=== PATIENT | female | born 1970 | race Hispanic/Latino ===

== ENCOUNTER → 2017-04-16 | Day surgery (SDC) | payer BC, OTHER ==
[2017-04-15 16:11] LABS: BASOPHILS # (AUTO) 0.1 (0.0-0.1); BASOPHILS % 0.6 % (0.0-1.0); EOSINOPHILS # (AUTO) 0.2 (0.0-0.4); EOSINOPHILS % 2.2 % (0.0-6.0); HEMATOCRIT 42.6 % (34.2-44.1); HEMOGLOBIN 14.2 g/dL (12.0-16.0); LYMPHOCYTES # (AUTO) 3.1 (1.0-3.2); LYMPHOCYTES % 28.1 % (18.0-39.1); MEAN CORPUSCULAR HEMOGLOBIN 30.7 pg (28-32); MEAN CORPUSCULAR HGB CONC 33.3 g/dL (31-35); MEAN CORPUSCULAR VOLUME 92.2 fL (81-99); MONOCYTES # (AUTO) 0.7 (0.2-0.8); MONOCYTES % 6.3 % (4.4-11.3); NEUTROPHILS # (AUTO) 6.8 (2.1-6.9); NEUTROPHILS % 62.5 % (38.7-80.0); PLATELET COUNT 234 x10e3/uL (140-360); RED BLOOD COUNT 4.62 x10e6/uL (3.6-5.1); RED CELL DISTRIBUTION WIDTH 13.5 % (11.7-14.4)
[2017-04-15 16:14] LABS: BILIRUBIN,URINE NEGATIVE (NEGATIVE); CLARITY,URINE CLEAR (CLEAR); COLOR,URINE YELLOW (YELLOW); KETONES,URINE NEGATIVE (NEGATIVE); LEUKOCYTE ESTERASE ,URINE NEGATIVE (NEGATIVE); NITRITE,URINE NEGATIVE (NEGATIVE); PROTEIN,URINE DIPSTICK NEGATIVE (NEGATIVE); URINE UROBILINOGEN 0.2 mg/dL (0.2 - 1)
[2017-04-15 16:46] LABS: ALANINE AMINOTRANSFERASE 42 IU/L (0-55); ALBUMIN/GLOBULIN RATIO 1.1 (0.8-2.0); ALKALINE PHOSPHATASE 100 IU/L (40-150); ANION GAP 11.7 mmol/L (8-16); BLOOD UREA NITROGEN 9 mg/dL (7-26); BUN/CREATININE RATIO 12 (6-25); CALCIUM 9.4 mg/dL (8.4-10.2); CARBON DIOXIDE 26 mmol/L (22-29); CHLORIDE 104 mmol/L (98-107); CREATININE, SERUM 0.76 mg/dL (0.57-1.11); EST GLOMERULAR FILTRATION RATE > 60 ML/MIN (60-); GLUCOSE 194 mg/dL (74-118); POTASSIUM 3.7 mmol/L (3.5-5.1); SODIUM 138 mmol/L (136-145)
[~2017-04-16] MED LIST: ACETAMINOPHEN 1000 MG/100 ML IV ONE; BUPIVACAINE 0.25% 30ML SDV INJ ONE; DEXAMETHASONE SOD PHOS INJ 4 MG/ML VIAL ONE; FARXIGA PO; FENTANYL CITRATE/PF 100MCG/2 ML INJ ONE; GLIPIZIDE10 MG PO; JANUMET 50-1,01 EACH PO; LEVOFLOXACIN 500MG/D5W 100ML 100 ML IV ONE; LIDOCAINE HCL 2% LOCAL INJ 5 ML SDV VIAL INJ ONE; LISINOPRIL2.5 MG PO; METOCLOPRAMIDE HCL 10 MG/2ML VIAL ONE; MIDAZOLAM HCL 2 MG/2 ML VIAL ONE; NORETHINDRONE0.35 MG PO; ONDANSETRON HCL INJ 2 MG/ML VIAL ONE; PROPOFOL IV EMULSION 10 MG/ML 20 ML VIAL ONE; ROCURONIUM BROMIDE 10 MG/ML 5ML VIAL ONE; SEVOFLURANE INHAL SOLN 250 ML PEN BTL ONE
--- NOTE | 2017-04-16 09:53 | Operative Report ---
DATE OF PROCEDURE: April 16, 2017 PREOPERATIVE DIAGNOSES 1. Cholelithiasis. 2. Biliary colic. POSTOPERATIVE DIAGNOSES 1. Cholelithiasis. 2. Biliary colic. 3. Chronic cholecystitis. PROCEDURE PERFORMED: Laparoscopic cholecystectomy. ANESTHESIA: General endotracheal. ESTIMATED BLOOD LOSS: Minimal. DRAINS: None. COMPLICATIONS: None. INDICATIONS AND FINDINGS: This patient is a 46-year-old female admitted for laparoscopic cholecystectomy. She has complained of right upper quadrant pain, nausea and vomiting for several weeks. The pain was aggravated by fatty food. Patient had gallstones by ultrasound and normal ductal system. INTRAOPERATIVE FINDINGS: Cholelithiasis. Adhesions of the stomach and omentum to the gallbladder consistent with chronic cholecystitis. No evidence of ductal dilatation. DESCRIPTION OF PROCEDURE: With the patient lying on the operating table in the supine position and after administration of general anesthesia, she was prepped and draped for laparoscopic cholecystectomy. The procedure was begun by establishing a pneumoperitoneum in the right upper quadrant midclavicular line. Pneumoperitoneum was insufflated to 15 mm of pressure. Then the 5-mm trocar was placed, and under direct vision with a camera, a 10 mm umbilical port was placed. There were no umbilical adhesions. The patient had previous . We placed a 10/11 trocar in the umbilical site and rotated the patient to the left up, and placed a 10-mm subxiphoid port. Then finally a right anterior axillary line trocar. The adhesions to the gallbladder was then retracted cephalad. Adhesions of the gallbladder to the omentum were lysed, as well as the stomach exposing the neck of the gallbladder. The cystic duct was identified anteriorly, and the cystic artery posteriorly clearly going into the gallbladder fossa. The cystic duct junction was identified and preserved. The cystic duct and common bile duct junction was identified and carefully preserved. Then the cystic duct was clipped distally 3 times, once proximal and transected as was the cystic artery. At this point, we retracted the gallbladder from the liver bed. At this point, we removed the gallbladder from the liver bed using electrocautery dissection. After we did that, we then went ahead and removed the gallbladder through the umbilical port. We then inspected the operative field. There was no bile leak. No bleeding. No apparent bowel injury. At that point, we released the pneumoperitoneum. Closed the wounds using 0 Vicryl for the umbilical fascia, 3-0 Vicryl for the subcutaneous tissue in that location, as well as the subxiphoid port, and the skin of all the ports with yue. Then 0.25% Marcaine with epinephrine was given as a local block at the end of the case. The patient tolerated the procedure well, and taken to the recovery room stable condition. Job#: [id number] RI
== END | disposition home or self-care (01) ==
LOC: OR 08:34
PROVIDERS: ATTEND Surgery
DX: K80.10 Calculus of gallbladder with chronic cholecystitis without obstruction (principal); K82.8 Other specified diseases of gallbladder; E11.9 Type 2 diabetes mellitus without complications; K21.9 Gastro-esophageal reflux disease without esophagitis; I10 Essential (primary) hypertension; F41.9 Anxiety disorder, unspecified; F17.210 Nicotine dependence, cigarettes, uncomplicated; Z01.810 Encounter for preprocedural cardiovascular examination; Z01.812 Encounter for preprocedural laboratory examination
CPT/HCPCS: 36415; 47562; 80053; 81003; 81025; 85025; 88304; 93005; C1766; J1100; J1956; J2001; J2250; J2405; J2765

== ENCOUNTER → 2018-06-10 | Day surgery (SDC) | payer BC ==
[~2018-06-10] MED LIST changes: -ACETAMINOPHEN 1000 MG/100 ML IV ONE; -BUPIVACAINE 0.25% 30ML SDV INJ ONE; -DEXAMETHASONE SOD PHOS INJ 4 MG/ML VIAL ONE; +HYDROXYZINE HCL25 MG PO; +HYOSCYAMINE 0.125 MG TAB ONE; +JOLIVETTE0.35 MG PO; -LEVOFLOXACIN 500MG/D5W 100ML 100 ML IV ONE; -LIDOCAINE HCL 2% LOCAL INJ 5 ML SDV VIAL INJ ONE; -METOCLOPRAMIDE HCL 10 MG/2ML VIAL ONE; +OMEPRAZOLE40 MG PO; -ONDANSETRON HCL INJ 2 MG/ML VIAL ONE; -PROPOFOL IV EMULSION 10 MG/ML 20 ML VIAL ONE; +PROPOFOL IV EMULSION 10 MG/ML 50 ML VIAL ONE; -ROCURONIUM BROMIDE 10 MG/ML 5ML VIAL ONE; -SEVOFLURANE INHAL SOLN 250 ML PEN BTL ONE; +VENLAFAXINE HCL75 M2 PO; +VYVANSE50 MG PO
--- OUTSIDE RECORDS SUMMARY | 2018-06-10 10:21 | XMS REPORT | Summary of Care ---
Author Author [facility] Address Unknown Phone Unavailable Encounter Brady(EJ) [id number] Date(s): 07/22/17 - 08/20/17 [facility] Discharge Disposition: Home or Self Care Attending Physician: Juan Velasco Vital Signs No data available for this section Problem List No data available for this section Allergies, Adverse Reactions, Alerts No data available for this section Medications No data available for this section Results No data available for this section Immunizations No data available for this section Procedures No data available for this section Social History No data available for this section Assessment and Plan No data available for this section
--- OUTSIDE RECORDS SUMMARY | 2018-06-10 10:21 | XMS REPORT | Summary of Care ---
Author Organization Unknown Address Unknown Phone Unavailable Encounter HQ Gurwinderr_kaleb(EJ) [id number] Date(s): 04/06/14 - 04/06/14 [facility] Outpatient Imaging - [address] [address] [place] Discharge Disposition: Home Physician Attending: Benitez Xiao DO Reason for Visit 790.4 - ELEV TRANSAMINA Problem List No data available for this section Allergies, Adverse Reactions, Alerts No data available for this section Medications No data available for this section Medications Administered During Your Visit No data available for this section Immunizations No data available for this section
--- OUTSIDE RECORDS SUMMARY | 2018-06-10 10:21 | XMS REPORT | Summary of Care ---
Author Organization Unknown Address Unknown Phone Unavailable Encounter HQ Gurwinderr_kaleb(EJ) [id number] Date(s): 10/06/13 - 10/06/13 [facility] Outpatient Imaging - [address] [address] [place] Discharge Disposition: Home Physician Attending: Benitez Xiao DO Reason for Visit 338 - PAIN NEC Problem List No data available for this section Allergies, Adverse Reactions, Alerts No data available for this section Medications No data available for this section Medications Administered During Your Visit No data available for this section Immunizations No data available for this section
--- OUTSIDE RECORDS SUMMARY | 2018-06-10 10:21 | XMS REPORT | Continuity of Care Document ---
Author Author [facility] Interface Address Unknown Phone Unavailable Problems Problem Status Onset Date Classification Date Reported Comments Source MECKENZIE METHOD Active 07/14/2017 [facility] 611.72 - [facility] [place] [facility] Medications Medication Details Route Status Patient Instructions Ordering Provider Order Date Source Allergies, Adverse Reactions, Alerts Substance Category Reaction Severity Reaction type Status Date Reported Comments Source Immunizations Immunization Date Given Site Status Last Updated Comments Source Results Order Name Results Value Reference Range Date Interpretation Comments Source Vital Signs Vital Sign Value Date Comments Source Encounters Location Location Details Encounter Type Encounter Number Reason For Visit Attending Provider ADM Date DC Date Status Source [facility] Outpatient Imaging - [place] [facility] [id number] Benitez Xiao 10/06/2013 10/07/2013 EDGARDO Meyer [facility] Outpatient Imaging - [place] [facility] [id number] Benitez Xiao 04/06/2014 04/07/2014 EDGARDO Meyer [facility] OP Therapy Patients [id number] Juan Velasco 07/22/2017 08/21/2017 [facility] Procedures Procedure Code Date Perfomer Comments Source
[2018-06-10 15:33] VITALS: BP 108/77
[2018-06-10 15:54] LABS: WBC,FECAL (FECAL LACTOFERRIN) NEGATIVE (NEGATIVE)
--- NOTE | 2018-06-10 18:29 | Operative Report ---
DATE OF PROCEDURE: 06/10/2018 SURGEON: Aneesh Medina MD PROCEDURES: Esophagogastroduodenoscopy with biopsies and colonoscopy with polypectomy and biopsies. INDICATIONS FOR EGD: Upper abdominal pain. INDICATIONS FOR COLONOSCOPY: Intermittent bouts of diarrhea alternating with constipation. MEDICATIONS: The patient was done under MAC, please see anesthesiologist's note. PROCEDURE IN DETAIL: With the patient in left lateral decubitus position, a flexible fiberoptic Olympus gastroscope was introduced into the esophagus under direct visualization without any difficulty. There was some patchy erythema noted in distal esophagus. The scope was then advanced with ease into the stomach and mucosa overlying the antrum and the body revealed some patchy intense erythema and moderate edema and biopsies were obtained and sent to stain for H pylori. Several minute hyperplastic-appearing polyps were noted in the body of the stomach and some were partially excised with the cold biopsy forceps. The pylorus was of normal contour and shape, it was intubated with ease and the scope was advanced all the way to the second portion of the duodenum. Biopsies were obtained from the proximal second portion as well as from the duodenal bulb to rule out sprue. The scope was then withdrawn back into the stomach and retroflexed and mucosa overlying the fundus and the cardia appeared to be within normal limits. The scope was then straightened out, it was subsequently withdrawn. The patient tolerated the procedure well. IMPRESSION: 1. Distal esophagitis, mild. 2. Gastritis, biopsied. Biopsies sent to stain for Helicobacter pylori. 3. Gastric polyps, some partially excised with the cold biopsy forceps. 4. Rule out sprue. PLAN: Follow up histology. Initiate Protonix 40 mg one p.o. q.a.m. a.c. PROCEDURE IN DETAIL: The patient was then turned around. After adequate lubrication of the anal canal, a flexible fiberoptic Olympus colonoscope was inserted into the rectum with ease and advanced all the way to the cecum. Mucosa overlying the cecum appeared to be within normal limits. The ileocecal valve was intubated and the scope was advanced into the terminal ileum. Biopsies were obtained. The scope was then withdrawn back into the colon. It was then withdrawn slowly and one polyp was hot biopsied from the ascending colon. The transverse appeared to be within normal limits. There was some mild inflammatory changes noted in the left colon and multiple random biopsies were obtained. One polyp was snared and one polyp was hot biopsied from the sigmoid colon. Three polyps were hot biopsied from the rectum. The scope was then retroflexed into the distal rectum and small internal hemorrhoids were noted, none of which was actively bleeding. The scope was then straightened out, it was subsequently withdrawn. The patient tolerated the procedure well. IMPRESSION: 1. Ascending colon polyp, hot biopsied. 2. Mild patchy left-sided colitis. 3. Sigmoid colon polyps x2, one snared and one hot biopsied. 4. Rectal polyps x3, hot biopsied. PLAN: Follow up histology. Follow up stool studies. Initiate Bentyl 10 mg one p.o. t.i.d. VSL#3 one p.o. daily. Aneesh Medina MD [facility] /[id number] cc: Kylee Lozano MD
[2018-06-11 14:59] LABS: C DIFFICILE TOXIN A&B AMP PROB NEGATIVE (NEGATIVE)
== END | disposition home or self-care (01) ==
LOC: OR 10:19
PROVIDERS: ATTEND Internal Medicine Gastroenterology
DX: K29.70 Gastritis, unspecified, without bleeding (principal); D12.2 Benign neoplasm of ascending colon; K62.1 Rectal polyp; K31.7 Polyp of stomach and duodenum; K51.50 Left sided colitis without complications; K29.80 Duodenitis without bleeding; K59.00 Constipation, unspecified; K20.9 Esophagitis, unspecified; E11.9 Type 2 diabetes mellitus without complications; M19.90 Unspecified osteoarthritis, unspecified site; F17.210 Nicotine dependence, cigarettes, uncomplicated; Z88.0 Allergy status to penicillin; Z01.810 Encounter for preprocedural cardiovascular examination; Z79.84 Long term (current) use of oral hypoglycemic drugs; Z68.27 Body mass index [BMI] 27.0-27.9, adult; Z80.0 Family history of malignant neoplasm of digestive organs
CPT/HCPCS: 36415; 43239; 45380; 45384; 45385; 81025; 82948; 83630; 83993; 87045; 87177; 87328; 87493; 93005; J2250; J2704; 45378

== ENCOUNTER 2020-01-24 12:55 | Emergency (ER) | payer BC ==
[~2020-01-24] VITALS: Ht 170.2 cm; Wt 72.6 kg
[~2020-01-24 12:55] MED LIST changes: -FENTANYL CITRATE/PF 100MCG/2 ML INJ ONE; -HYOSCYAMINE 0.125 MG TAB ONE; -MIDAZOLAM HCL 2 MG/2 ML VIAL ONE; -PROPOFOL IV EMULSION 10 MG/ML 50 ML VIAL ONE
[2020-01-24] MEDS ORDERED: SODIUM CHLORIDE 0.9% 1000ML 1,000 ML IV STA ×2 (13:33→16:55)
[2020-01-24 13:40] LABS: BASOPHILS % 0.3 % (0.0-1.0); EOSINOPHILS # (AUTO) 0.1 (0.0-0.4); EOSINOPHILS % 1.1 % (0.0-6.0); HEMATOCRIT 30.2 % (34.2-44.1); HEMOGLOBIN 10.3 g/dL (12.0-16.0); LYMPHOCYTES # (AUTO) 1.1 (1.0-3.2); LYMPHOCYTES % 14.2 % (18.0-39.1); MEAN CORPUSCULAR HEMOGLOBIN 30.1 pg (28-32); MEAN CORPUSCULAR HGB CONC 34.1 g/dL (31-35); MEAN CORPUSCULAR VOLUME 88.3 fL (81-99); MONOCYTES # (AUTO) 0.7 (0.2-0.8); MONOCYTES % 9.2 % (4.4-11.3); NEUTROPHILS # (AUTO) 5.6 (2.1-6.9); NEUTROPHILS % 74.9 % (38.7-80.0); PLATELET COUNT 175 x10e3/uL (140-360); RED BLOOD COUNT 3.42 x10e6/uL (3.6-5.1); RED CELL DISTRIBUTION WIDTH 13.4 % (11.7-14.4)
[2020-01-24 13:45] LABS: INR 0.96; PARTIAL THROMBOPLASTIN TIME 31.3 seconds (23.8-35.5); PROTHROMBIN TIME 13.3 seconds (11.9-14.5)
[2020-01-24 13:53] LABS: ALANINE AMINOTRANSFERASE 42 IU/L (0-55); ALBUMIN 2.8 g/dL (3.5-5.0); ALBUMIN/GLOBULIN RATIO 0.7 (0.8-2.0); ALKALINE PHOSPHATASE 202 IU/L (40-150); ANION GAP 11.8 mmol/L (8-16); BLOOD UREA NITROGEN 12 mg/dL (7-26); BUN/CREATININE RATIO 13 (6-25); CALCIUM 9.3 mg/dL (8.4-10.2); CARBON DIOXIDE 25 mmol/L (22-29); CHLORIDE 98 mmol/L (98-107); CREATINE KINASE 108 IU/L (29-168); CREATININE, SERUM 0.89 mg/dL (0.57-1.11); EST GLOMERULAR FILTRATION RATE > 60 ML/MIN (60-); GLUCOSE 382 mg/dL (74-118); MAGNESIUM 1.6 MG/DL (1.3-2.1); POTASSIUM 3.8 mmol/L (3.5-5.1); SODIUM 131 mmol/L (136-145)
--- NOTE | 2020-01-24 14:37 | Diagnostic Imaging Report ---
EXAMINATION: CHEST SINGLE (PORTABLE) INDICATION: Hyperglycemia COMPARISON: None FINDINGS: LINES/TUBES:EKG leads overlie the chest. LUNGS:The lungs are well-inflated. No focal consolidation or pulmonary edema. PLEURA:No pleural effusion or pneumothorax. MEDIASTINUM:The cardiomediastinal silhouette appears normal in size and shape. BONES/SOFT TISSUES:No acute osseous injury. ABDOMEN:No free air under the diaphragm. IMPRESSION: No focal pneumonia or pulmonary edema. Signed by: Mehdi Reddy MD on 01/24/2020 2:33 PM
[2020-01-24] MEDS ORDERED: INSULIN REGULAR, HUMAN 100 UNIT/1 ML 3ML VIAL IV ONE (15:15)
--- NOTE | 2020-01-24 15:31 | Emergency Department Note ---
History of Present Illnes History of Present Illness Chief Complaint: Diabetic Crisis History of Present Illness This is a 49 year old female Patient in from home with complaints of headache, chills, nausea, and high blood sugars since wednesday (January 18). Patient reports that she has not been taking her diabetic medications consistently due to feeling so poorly. Patient reports her last blood sugar reading at home was 348 in triage it was 383. Patient is alert and oriented in triage but appears tired and fatigued. Historian: Patient Arrival Mode: Car Mold Presser Required: No Onset (how long ago): day(s) (5) Location: headache Quality: pain Radiation: Reports non-radiation Severity: moderate Onset quality: gradual Timing of current episode: intermittent Progression: waxing and waning Chronicity: recurrent Context: Denies recent illness Relieving factors: none Exacerbating factors: none Associated symptoms: Reports denies other symptoms Past Medical/Family History Physician Review I have reviewed the patient's past medical and family history. Any updates have been documented here. Past Medical History Recent Fever: Yes (subjective) Clinical Suspicion of Infectio: No New/Unexplained Change in Ment: No Past Medical History: Diabetes Past Surgical History: , Cataract Removal Other Surgery: deviated septum repair Social History Smoking Cessation: Never Smoker Counseling Performed: No Alcohol Use: None Any Illegal Drug Use: No TB Exposure/Symptoms: No Physically hurt or threatened: No Family History Family history of heart diseas: No Other Any Pre-Existing Lines (PICC,: No Review of Systems Review of Systems Constitutional: Reports as per HPI, Reports chills EENTM: Reports no symptoms Cardiovascular: Reports no symptoms Respiratory: Reports no symptoms Gastrointestinal: Reports as per HPI, Reports nausea Genitourinary: Reports no symptoms Musculoskeletal: Reports no symptoms Integumentary: Reports no symptoms Neurological: Reports headache Psychological: Reports no symptoms Endocrine: Reports other (sugars high) Hematological/Lymphatic: Reports no symptoms Review of other systems: All other systems negative Physical Exam Related Data Allergies: Coded Allergies: Penicillins (Verified Allergy, Unknown, FEVER/SWELLING, 04/15/17) Triage Vital Signs Vital Signs Date Time Temp Pulse Resp B/P (MAP) Pulse Ox O2 Delivery O2 Flow Rate FiO2 01/24/20 13:01 98.7 98 18 138/82 100 Room Air Vital signs reviewed: Yes Physical Exam CONSTITUTIONAL Constitutional: Present well-developed, Present well-nourished HENT HENT: Present normocephalic, Present atraumatic, Present mucosae dry, Present nose normal HENT L/R: Present left ext ear normal, Present right ext ear normal EYES Eyes: Reports PERRL, Reports conjunctivae normal NECK Neck: Present ROM normal PULMONARY Pulmonary: Present effort normal, Present breath sounds normal CARDIOVASCULAR Cardiovascular: Present regular rhythm, Present heart sounds normal, Present capillary refill normal, Present normal rate GASTROINTESTINAL Abdominal: Present soft, Present nontender, Present bowel sounds normal GENITOURINARY Genitourinary: Present exam deferred SKIN Skin: Present warm, Present dry MUSCULOSKELETAL Musculoskeletal: Present ROM normal NEUROLOGICAL Neurological: Present alert, Present oriented x 3, Present no gross motor or s ensory deficits PSYCHOLOGICAL Psychological: Present mood/affect normal, Present judgement normal Results Laboratory Result Diagram: 01/24/20 1313 01/24/20 1313 Laboratory Laboratory Tests Test 01/24/20 13:13 White Blood Count 7.46 x10e3/uL (4.8-10.8) Red Blood Count 3.42 x10e6/uL (3.6-5.1) Hemoglobin 10.3 g/dL (12.0-16.0) Hematocrit 30.2 % (34.2-44.1) Mean Corpuscular Volume 88.3 fL (81-99) Mean Corpuscular Hemoglobin 30.1 pg (28-32) Mean Corpuscular Hemoglobin Concent 34.1 g/dL (31-35) Red Cell Distribution Width 13.4 % (11.7-14.4) Platelet Count 175 x10e3/uL (140-360) Neutrophils (%) (Auto) 74.9 % (38.7-80.0) Lymphocytes (%) (Auto) 14.2 % (18.0-39.1) Monocytes (%) (Auto) 9.2 % (4.4-11.3) Eosinophils (%) (Auto) 1.1 % (0.0-6.0) Basophils (%) (Auto) 0.3 % (0.0-1.0) Neutrophils # (Auto) 5.6 (2.1-6.9) Lymphocytes # (Auto) 1.1 (1.0-3.2) Monocytes # (Auto) 0.7 (0.2-0.8) Eosinophils # (Auto) 0.1 (0.0-0.4) Basophils # (Auto) 0.0 (0.0-0.1) Absolute Immature Granulocyte (auto 0.02 x10e3/uL (0-0.1) Prothrombin Time 13.3 seconds (11.9-14.5) Prothromb Time International Ratio 0.96 Activated Partial Thromboplast Time 31.3 seconds (23.8-35.5) Sodium Level 131 mmol/L (136-145) Potassium Level 3.8 mmol/L (3.5-5.1) Chloride Level 98 mmol/L (98-107) Carbon Dioxide Level 25 mmol/L (22-29) Anion Gap 11.8 mmol/L (8-16) Blood Urea Nitrogen 12 mg/dL (7-26) Creatinine 0.89 mg/dL (0.57-1.11) Estimat Glomerular Filtration Rate > 60 ML/MIN (60-) BUN/Creatinine Ratio 13 (6-25) Glucose Level 382 mg/dL (74-118) Calcium Level 9.3 mg/dL (8.4-10.2) Magnesium Level 1.6 MG/DL (1.3-2.1) Total Bilirubin 0.3 mg/dL (0.2-1.2) Aspartate Amino Transf (AST/SGOT) 42 IU/L (5-34) Alanine Aminotransferase (ALT/SGPT) 42 IU/L (0-55) Alkaline Phosphatase 202 IU/L (40-150) Creatine Kinase 108 IU/L (29-168) Creatine Kinase MB 1.00 ng/mL (0-5.0) Troponin I 0.013 ng/mL (0-0.300) B-Type Natriuretic Peptide < 10.0 pg/mL (0-100) Total Protein 7.1 g/dL (6.5-8.1) Albumin 2.8 g/dL (3.5-5.0) Globulin 4.3 g/dL (2.3-3.5) Albumin/Globulin Ratio 0.7 (0.8-2.0) Human Chorionic Gonadotropin, Qual Negative (NEGATIVE) Lab results reviewed: Yes Imaging Imaging results reviewed: Yes Impressions Examination: CT BRAIN WO History:Headache Comparison studies:None Technique: Axial images were obtained from the skull base to the vertex. Coronal and sagittal images reconstructed from the axial data. Dose modulation, iterative reconstruction, and/or weight based adjustment of the mA/kV was utilized to reduce the radiation dose to as low as reasonably achievable. Intravenous contrast: None Findings: Scalp: No abnormalities. Bones: No fractures, blastic or lytic lesions. Brain sulci: Appropriate for age. Ventricles: Normal in size and configuration. No hydrocephalus. Extra-axial space: No abnormalities. Parenchyma: No abnormal densities. No masses, hemorrhage, or acute or chronic cortical based vascular insults.. Sellar/suprasellar region: No abnormalities. Craniocervical junction: Patent foramen magnum. No Chiari one malformation. Incidental findings: None. Impression: No intracranial abnormalities. Signed by: Dr. Elana Coon M.D. on 01/24/2020 3:37 PM Assessment & Plan Medical Decision Making MDM c/o nausea, headache, sugars high, appears dehydrated - check cbc, chem, ua, ct brain, cardiacs, cxr - eval DKA, electrolyte abnl, renal insuff, dehydration, cerebral bleed, pneumonia Reassessment Reassessment improved with IVF's, insulin, Toradol. DC home, push po fluids, Cipro, fioricet, F/U PCP tomorrow Assessment & Plan Final Impression: (1) UTI (urinary tract infection) (2) Dehydration (3) Hyperglycemia (4) Headache Depart Disposition: HOME, SELF-CARE Last Vital Signs Date Time Temp Pulse Resp B/P (MAP) Pulse Ox O2 Delivery O2 Flow Rate FiO2 01/24/20 13:01 98.7 98 18 138/82 100 Room Air Home Meds Reported Medications Norethindrone (JOLIVETTE) 0.35 Mg Tablet, PO DAILY 06/07/18 Lisdexamfetamine Dimesylate (VYVANSE) 50 Mg Capsule, 50 MG PO DAILY 06/07/18 Hydroxyzine Hcl (HYDROXYZINE HCL) 25 Mg Tablet, 25 MG PO TID, #30 TAB 06/07/18 Venlafaxine Hcl (VENLAFAXINE HCL ER) 75 Mg Tab.er.24, 150 MG PO DAILY 06/07/18 Omeprazole (OMEPRAZOLE) 40 Mg Capsule.dr, 40 MG PO DAILY 06/07/18 Sitagliptin Phos/Metformin Hcl (JANUMET 50-1,000 MG TABLET) 1 Each Tablet, PO BID 04/15/17 Glipizide (GLIPIZIDE) 10 Mg Tablet, 10 MG PO BID 04/15/17 [[facility]] No Conflict Check, 5 MG PO DAILY 04/15/17 Lisinopril (LISINOPRIL) 2.5 Mg Tablet, 2.5 MG PO DAILY, #30 TAB 04/15/17 Norethindrone (NORETHINDRONE) 0.35 Mg Tablet, 0.35 MG PO DAILY 04/15/17 Medications in the ED Sodium Chloride 1,000 ml @ 0 mls/hr Q0M STAT IV Last administered on 01/24/20at 13:40; Admin Dose 250 MLS/HR; Start 01/24/20 at 13:33; Stop 01/24/20 at 13:37; Status DC Insulin Human Regular 8 unit ONCE ONCE IV ; Start 01/24/20 at 15:15; Stop 01/24/20 at 15:28; Status DC REGGIE GUERRA MD Jan 24, 2020 15:31
--- NOTE | 2020-01-24 15:40 | Diagnostic Imaging Report ---
Examination: CT BRAIN WO History:Headache Comparison studies:None Technique: Axial images were obtained from the skull base to the vertex. Coronal and sagittal images reconstructed from the axial data. Dose modulation, iterative reconstruction, and/or weight based adjustment of the mA/kV was utilized to reduce the radiation dose to as low as reasonably achievable. Intravenous contrast: None Findings: Scalp: No abnormalities. Bones: No fractures, blastic or lytic lesions. Brain sulci: Appropriate for age. Ventricles: Normal in size and configuration. No hydrocephalus. Extra-axial space: No abnormalities. Parenchyma: No abnormal densities. No masses, hemorrhage, or acute or chronic cortical based vascular insults.. Sellar/suprasellar region: No abnormalities. Craniocervical junction: Patent foramen magnum. No Chiari one malformation. Incidental findings: None. Impression: No intracranial abnormalities. Signed by: Dr. Elana Coon M.D. on 01/24/2020 3:37 PM
[2020-01-24 16:18] LABS: BILIRUBIN,URINE NEGATIVE (NEGATIVE); CLARITY,URINE CLOUDY (CLEAR); COLOR,URINE YELLOW (YELLOW); KETONES,URINE NEGATIVE (NEGATIVE); LEUKOCYTE ESTERASE ,URINE NEGATIVE (NEGATIVE); NITRITE,URINE NEGATIVE (NEGATIVE); PROTEIN,URINE DIPSTICK 1+ (NEGATIVE); URINE UROBILINOGEN 1 mg/dL (0.2 - 1)
[2020-01-24 16:22] LABS: BACTERIA,URINE MANY /HPF; EPITHELIAL CELLS,URINE RARE /LPF; RBC,URINE 0-5 /HPF (0-5)
[2020-01-24] MEDS ORDERED: KETOROLAC TROMETHAMINE 30 MG/ML VIAL IV STA (16:55)
[2020-01-24 18:01] VITALS: BP 127/56
--- OUTSIDE RECORDS SUMMARY | 2020-01-25 19:42 | XMS REPORT | Continuity of Care Document ---
Author Author [facility] t Organization [facility] Address [address] [place] [address] Phone Unavailable Care Team Providers Care Fairing Man Name Role Phone Aleksandr GUERRA Attphys Unavailable [place] Velasco Attphys Benitez Xiao Attphys Payers Payer Name Policy Type Policy Number Effective Date Expiration Date S ource Problems Condition Name Condition Details Condition Category Status Onset Date Resolution Date Last Treatment Date Treating Clinician Comments Source MECKENADELEE METHOD MECK JAIME METHOD Active 07/14/2017 [facility] [place] Diagnosis Active 2017-07-14 08:00:00 2017-07-22 16:40:00 Stephen Link 611.72 - [place] 611. 72 - [place] Active 08/18/2012 [facility] Diagnosis Active 2012-08-18 00:01:00 2013-11-13 14:08:00 [facility] Allergies, Adverse Reactions, Alerts Allergy Name Allergy Type Status Severity Reaction(s) Onset Date Inacti ve Date Treating Clinician Comments Source Penicillins DA Active U 2013-07-16 00:00:00 [facility] Social History Social Habit Start Date Stop Date Quantity Comments Source Social History 2017-08-21 04:59:00 2017-08-21 04:59:00 [facility] Medications This patient has no known medications. Procedures This patient has no known procedures. Encounters Start Date/Time End Date/Time Encounter Type Admission Type [facility] Care Department Encounter ID Source 2017-07-22 16:00:00 2017-08-20 23:59:00 Outpatient Keenan Velasco [id number] 2014-04-06 12:13:00 2014-04-06 23:59:00 Outpatient Ninoska Dedekristyn BORREROMUNIRA MUNIRA [id number] 2013-10-06 15:50:00 2013-10-06 23:59:00 Outpatient Moi Xiao MUNIRA [id number] Results Test Description Test Time Test Comments Results Result Comments Source CT BRAIN WO 2020-01-24 15:36:00 [facility] 1970 Sex: F [place] [address] Patient Name: YUE DUMONT MR #: [id number] : 1970 Age/Sex: 49/F Req #: [id number] [facility] Physician: Ordered by: REGGIE GUERRA MD Report #: [id number] Location: Room/Bed: Procedure: [id number] CT/CT BRAIN WO Exam Date: 01/24/20 Exam Time: 1514 REPORT STATUS: Signed Examination: CT BRAIN WO History:Headache Comparison studies:None Technique: Axial images were obtained from the skull base to the vertex. Coronal and sagittal images reconstructed from the axial data. Dose modulation, iterative reconstruction, and/or weight based adjustment of the mA/kV was utilized to reduce the radiation dose to as low as reasonably achievable. Intravenous contrast: None Findings: Scalp: No abnormalities. Bones: No fractures, blastic or lytic lesions. Brain sulci: Appropriate for age. Ventricles: Normal in size and configuration. No hydrocephalus. Extra-axial space: No abnormalities. Parenchyma: No abnormal densities. No masses, hemorrhage, or acute or chronic cortical based vascular insults.. Sellar/suprasellar region: No abnormalities. Craniocervical junction: Patent foramen magnum. No Chiari one malformation. Incidental findings: None. Impression: No intracranial abnormalities. Signed by: Dr. Trent Coon M.D. on 01/24/2020 3:37 PM Dictated By: TRENT WYNN MD 36 Transcribed By: GEGE on 01/24/201536 COPY TO: REGGIE GUERRA MD CHEST SINGLE (PORTABLE) 2020-01-24 14:33:00 [facility] 1970 Sex: F [facility] [address], [place] [address] Patient Name: YUE DUMONT MR #: [id number] : 1970 Age/Sex: 49/F Req #: [id number] Adm Physician: Ordered by: REGGIE GUERRA MD Report #: [id number] Location: ER Room/Bed: Procedure: [id number] DX/CHEST SINGLE (PORTABLE) Exam Date: 01/24/20 Exam Time: 1410 REPORT STATUS: Signed EXAMINATION: CHEST SINGLE (PORTABLE) INDICATION: Hyperglycemia COMPARISON: None FINDINGS: LINES/TUBES:EKG leads overlie the chest. LUNGS:The lungs are well-inflated. No focal consolidation or pulmonary edema. PLEURA:No pleural effusion or pneumothorax. MEDIASTINUM:The cardiomediastinal silhouette appears normal in size and shape. BONES/SOFT TISSUES:No acute osseous injury. ABDOMEN:No free air under the diaphragm. IMPRESSION: No focal pneumonia or pulmonary edema. Signed by: Stan Chowdary MD on 01/24/2020 2:33 PM Dictated By: STAN CHOWDARY MD 1433 Transcribed By: GEGE on 01/24/20 1433 COPY TO: REGGIE GUERRA MD - CT ABD PELVIS W/CONT 2019-07-27 22:03:00 Matt e: YUE SETHI [facility] : 1970 Age/S: 48 / F [address] [facility] Unit #: [id number] Loc: [place] [address] Phys: Orozco,Marely C ENRICHMENT ASSISTANT Acct: [id number] Dis Date: Status: REG ER PHONE #: [phone] Exam Date: 07/27/20192149 FAX #: [phone] Reason: lower abd pain EXAMS: CPT CODE: [id number] CT ABD PELVIS W/CONT 57804 EXAM: CT of the abdomen and pelvis with contrast; INFORMATION: Suprapubic pain, abdominal pain; TECHNIQUE: CT dose reduction protocol; 5 mm cuts were obtained through the abdomen and pelvis during and after intravenous infusion of contrast material. FINDINGS: Liver, spleen and pancreas are of normal size and shape; they show homogeneous enhancement without focal lesions. Status post cholecystectomy; no biliary dilatation. Adrenal glands and kidneys are unremarkable; no evidence of adenopathy; No evidence of appendicitis or other acute bowel abnormalities. No pelvic mass lesions; both ovaries are unremarkable No abnormal fluid collections. Scans through the lung bases are clear. IMPRESSION: No evidence of acute abdominal or pelvic abnormalities. Location code: [facility] at 2203 Reported and signed by: Reji Nichole M.D. CC: Marely Orozco NP; Jenny Love Technologist:CAMMIE CALVILLO RT(R),RDMS,CT CTDI: DLP: Trnscb Date/Time: 07/27/2019 (2202) Sal Orig Print D/T: S: 07/27/2019 (2206) PAGE 1 Signed Report - US TRANSVAGINAL NON OB 2019-07-27 21:44:00 N pedro: YUE SETHI [facility] : 1970 Age/S: 48 / F [address] [facility] Unit #: [id number] Loc: [place] [address] Phys: Marely Orozco NP Acct: [id number] Dis Date: Status: REG ER PHONE #: [phone] Exam Date: 07/27/20192136 FAX #: [phone] Reason: VAGINAL BLEEDING/PELVIC PAIN EXAMS: CPT CODE: [id number] [place] [address] EXAM: Pelvic and transvaginal ultrasound and duplex sonography; INFORMATION: Pelvic pain; suprapubic pain; TECHNIQUE AND FINDINGS: Transabdominal and transvaginal grayscale imaging was combined with color Doppler sonography and spectral analysis. The uterus measures 6.7 x 3.6 x 4.9 cm. Thin endometrial stripe, measuring 8 mm in thickness. No fluid collection within the endometrial canal. The right ovary is not seen; no right adnexal lesion. In the left ovary is of normal size and shape and with normal flow pattern on Doppler exam. The left ovary measures 2.3 x 1.8 x 1.9 cm. No free fluid within the cul-de-sac. IMPRESSION: 1. Right ovary not seen but no evidence of right adnexal lesion. 2. Otherwise, unremarkable pelvic ultrasound. Location code: at 2143 Reported and signed by: Reji Nichole M.D. CC: Marely Orozco NP; Jenny Love Technologist: Meggan Coyle RDMS [facility] Date/Time: 07/27/2019 (2143) tANA Orig Print D/T: S: 07/27/2019 (2146) Probe: [id number] PAGE 1 Signed Report - US PELVIS COMPLETE 2019-07-27 21:44:00 Name: JOSSIEYUE Brandon [facility] : 1970 Age/S: 48 / F [address] [facility] Unit #: [id number] Loc: [place] [address] Phys: Marely Orozco NP Acct: [id number] Dis Date: Status: REG ER PHONE #: [phone] Exam Date: 07/27/20192136 FAX #: [phone] Reason: VAGINAL BLEEDING/PELVIC PAIN EXAMS: CPT CODE: [id number] US PELVIS COMPLETE 05629 EXAM: Pelvic and transvaginal ultrasound and duplex sonography; INFORMATION: Pelvic pain; suprapubic pain; TECHNIQUE AND FINDINGS: Transabdominal and transvaginal grayscale imaging was combined with color Doppler sonography and spectral analysis. The uterus measures 6.7 x 3.6 x 4.9 cm. Thin endometrial stripe, measuring 8 mm in thickness. No fluid collection within the endometrial canal. The right ovary is not seen; no right adnexal lesion. In the left ovary is of normal size and shape and with normal flow pattern on Doppler exam. The left ovary measures 2.3 x 1.8 x 1.9 cm. No free fluid within the cul-de-sac. IMPRESSION: 1. Right ovary not seen but no evidence of right adnexal lesion. 2. Otherwise, unremarkable pelvic ultrasound. Location code: at 2143 Reported and signed by: Reji Nichole M.D. CC: Marely Orozco NP; Jenny Love Technologist: Meggan Coyle RDMS [facility] Date/Time: 07/27/2019 (2143) Sal Orig Print D/T: S: 07/27/2019 (2146) Probe: PAGE 1 Signed Report - DUP AB/PEL/SC COMP 2019-07-27 21:44:00 Name: JOSSIEYUE Brandon [facility] : 1970 Age/S: 48 / F [address] [facility] Unit #: [id number] Loc: [place] [address] Phys: Marely Orozco NP Acct: [id number] Dis Date: Status: REG ER PHONE #: [phone] Exam Date: 07/27/20192136 FAX #: [phone] Reason: PELVIC PAIN EXAMS: CPT CODE: [id number] DUP AB/PEL/SC COMP 68637 EXAM: Pelvic and transvaginal ultrasound and duplex sonography; INFORMATION: Pelvic pain; suprapubic pain; TECHNIQUE AND FINDINGS: Transabdominal and transvaginal grayscale imaging was combined with color Doppler sonography and spectral analysis. The uterus measures 6.7 x 3.6 x 4.9 cm. Thin endometrial stripe, measuring 8 mm in thickness. No fluid collection within the endometrial canal. The right ovary is not seen; no right adnexal lesion. In the left ovary is of normal size and shape and with normal flow pattern on Doppler exam. The left ovary measures 2.3 x 1.8 x 1.9 cm. No free fluid within the cul-de-sac. IMPRESSION: 1. Right ovary not seen but no evidence of right adnexal lesion. 2. Otherwise, unremarkable pelvic ultrasound. Location code: [facility] at 2143 Reported and signed by: Reji Nichole M.D. CC: Marely Orozco ENRICHMENT ASSISTANT; Jenny Love Technologist: Meggan Coyle RDMS [facility]nil[facility] Date/Time: 07/27/2019 (2143) Sal Orig Print D/T: S: 07/27/2019 (2146) Probe: PAGE 1 Signed Report BASIC METABOLIC PANEL 2019-07-27 21:07:00 Test Item SODIUM (test code = NA) 136 mmol/L 136-145 N POTASSIUM (test code = K) 3.5 mmol/L 3.5-5.1 N CHLORIDE (test code = CL) 101 mmol/L 101-109 N CARBON DIOXIDE (test code = CO2) 25.8 mmol/L 21-32 N ANION GAP (test code = GAP) 13 mmol/L 10-20 N GLUCOSE (test code = GLU) 354 mg/dL 74-106 H BLOOD UREA NITROGEN (test code = BUN) 5 mg/dL 3-21 N GLOMERULAR FILTRATION RATE (test code = GFR) > 60 mL/min >=60 Estimated GFR by using Modified MDRD formula.Chronic kidney disease is defined as either kidney damageor GFR <60 mL/min/1.73 m2 for >3 months. CREATININE (test code = CREAT) 0.80 mg/dL 0.55-1.3 N BUN/CREATININE RATIO (test code = BUN/CREA) 6.3 10-20 L CALCIUM (test code = CA) 6.9 mg/dL 8.4-10.2 L CBC W/AUTO [id number] 20:56:00* Test Item Value Reference Range Interpretation Comments WHITE BLOOD CELL (test code = WBC) 7.7 K/mm3 4.5-12.5 N RED BLOOD CELL (test code = RBC) 3.95 mill/mm3 3.7-5.2 N HEMOGLOBIN (test code = HGB) 11.9 gram/dL 11.5-15.5 N HEMATOCRIT (test code = HCT) 36.8 % 36.0-46.0 N MEAN CELL VOLUME (test code = MCV) 93.2 fL 80-98 N MEAN CELL HGB (test code = MCH) 30.1 picogram 27.0-33.0 N MEAN CELL HGB CONCETRATION (test code = MCHC) 32.3 gram/dL 33.0-36. 0 L RED CELL DISTRIBUTION WIDTH (test code = RDW) 13.4 % 11.6-16. 2 N RED CELL DISTRIBUTION WIDTH SD (test code = RDW-SD) 45.9 fL 37 .0-51.0 N PLATELET COUNT (test code = PLT) 220 K/mm3 150-450 N MEAN PLATELET VOLUME (test code = MPV) 10.6 fL 6.7-11.0 N NEUTROPHIL % (test code = NT%) 53.7 % 39.0-69.0 N LYMPHOCYTE % (test code = LY%) 34.4 % 25.0-55.0 N MONOCYTE % (test code = MO%) 7.5 % 0.0-10.0 N EOSINOPHIL % (test code = EO%) 3.5 % 0.0-5.0 N BASOPHIL % (test code = BA%) 0.8 % 0.0-1.0 N NEUTROPHIL # (test code = NT#) 4.15 K/mm3 1.8-7.7 N LYMPHOCYTE # (test code = LY#) 2.66 K/mm3 1.0-5.0 N MONOCYTE # (test code = MO#) 0.58 K/mm3 0-0.8 N EOSINOPHIL # (test code = EO#) 0.27 K/mm3 0.0-0.5 N BASOPHIL # (test code = BA#) 0.06 K/mm3 0.0-0.2 N MANUAL DIFF REQUIRED (test code = MDIFF) NO UR HCG [id number] 20:37:00* Test Item Value Reference Range Interpretation Comments UR HCG QUAL (test code = HCGQLU) NEGATIVE This HCGQL test is NOT applicable for MALE patients.Check with nurse about probable order error.If Tumor Marker Test needed, nurse should order test "HCGTU"(Test #550.07014) URINALYSIS [id number] 20:37:00* Test Item Value Reference Range Interpretation Comments UA COLOR (test code = COLU) YELLOW YELLOW UA APPEARANCE (test code = APPU) CLEAR CLEAR UA GLUCOSE DIPSTICK (test code = DGLUU) 1000 (3+) mg/dL NEGATIVE A UA BILIRUBIN DIPSTICK (test code = BILU) NEGATIVE mg/dL NEGATIVE UA KETONE DIPSTICK (test code = KETU) neg mg/dL NEGATIVE UA SPECIFIC GRAVITY (test code = SGU) 1.010 1.001-1.035 UA BLOOD DIPSTICK (test code = JOAO) 10 (Trace) Corbin/uL NEGATIVE A UA PH DIPSTICK (test code = SUSANA) 5.0 5.0-8.0 UA PROTEIN DIPSTICK (test code = PROU) neg mg/dL Neg-15 UA UROBILINIOGEN DIPSTICK (test code = URO) norm mg/dL 0.0-0.2 UA NITRITE DIPSTICK (test code = ARIELLE) NEGATIVE NEGATIVE UA LEUKOCYTE ESTERASE DIPSTICK (test code = LEUU) neg uL NEGA TIVE UA WBC (test code = WBCU) 0-2 per HPF 0-5 UA RBC (test code = RBCU) 0-3 per HPF 0-5 UA EPITHELIAL CELLS (test code = EPIU) Few (2-5/hpf) per HPF Few UA BACTERIA (test code = BACU) FEW per HPF NONE UA YEAST (test code = YEASTU) BUDDING per HPF NONE Urine Source? Clean CatchURINALYSIS [id number] 20:35:00* Test Item Value Reference Range Interpretation Comments UA COLOR (test code = COLU) YELLOW YELLOW UA APPEARANCE (test code = APPU) CLEAR CLEAR UA GLUCOSE DIPSTICK (test code = DGLUU) 1000 (3+) mg/dL NEGATIVE A UA BILIRUBIN DIPSTICK (test code = BILU) NEGATIVE mg/dL NEGATIVE UA KETONE DIPSTICK (test code = KETU) neg mg/dL NEGATIVE UA SPECIFIC GRAVITY (test code = SGU) 1.010 1.001-1.035 UA BLOOD DIPSTICK (test code = JOAO) 10 (Trace) Corbin/uL NEGATIVE A UA PH DIPSTICK (test code = SUSANA) 5.0 5.0-8.0 UA PROTEIN DIPSTICK (test code = PROU) neg mg/dL Neg-15 UA UROBILINIOGEN DIPSTICK (test code = URO) norm mg/dL 0.0-0.2 UA NITRITE DIPSTICK (test code = ARIELLE) NEGATIVE NEGATIVE UA LEUKOCYTE ESTERASE DIPSTICK (test code = LEUU) neg uL NEGA TIVE UA WBC (test code = WBCU) per HPF 0-5 UA RBC (test code = RBCU) per HPF 0-5 UA EPITHELIAL CELLS (test code = EPIU) per HPF Few UA BACTERIA (test code = BACU) per HPF NONE Urine Source? Clean Catch
--- OUTSIDE RECORDS SUMMARY | 2020-01-25 19:42 | XMS REPORT | Continuity of Care Document ---
Author Author [facility] Organization [facility] Address Unknown Phone Unavailable Care Team Providers Care Video Games Storywriter Name Role Phone [employer] Information Spoke Unavailable Un available Problems Problem Status Onset Date Classification Date Reported Comments Source MECKENZIE METHOD Active 07/14/2017 [facility] 611.72 - [place] Active 08/18/2012 [facility] Medications No Data Provided for This Section Allergies, Adverse Reactions, Alerts No Known Medication Allergies Immunizations No Data Provided for This Section Results No Data Provided for This Section Pathology Reports No Data Provided for This Section Diagnostic Reports No Data Provided for This Section Consultation Notes No Data Provided for This Section Discharge Summaries No Data Provided for This Section History and Physicals No Data Provided for This Section Vital Signs No Data Provided for This Section Encounters Location Location Details Encounter Type Encounter Number Reason For Visit Attending Provider ADM Date DC Date Status Source [facility] [place] [facility] [id number] Benitez Xiao 10/06/2013 10/07/2013 [facility] [place] [facility] [place] Out[facility] Di[facility] Services [id number] Benitez Xiao 04/06/2014 04/07/2014 [facility] [place] [facility] OP Therapy Patients [id number] Juan Velasco 07/22/2017 08/21/2017 [facility] Procedures No Data Provided for This Section Assessment and Plan No Data Provided for This Section Plan of Care No Data Provided for This Section Social History Social History Date Source No data available for this section 08/21/2017 [facility] Family History No Data Provided for This Section Advance Directives No Data Provided for This Section Functional Status No Data Provided for This Section
== END 2020-01-24 18:07 | disposition home or self-care (01) ==
LOC: ER 15:07
DX: E11.65 Type 2 diabetes mellitus with hyperglycemia (principal); E86.0 Dehydration; N39.0 Urinary tract infection, site not specified; R11.0 Nausea; R51.9 Headache, unspecified
CPT/HCPCS: 36415; 70450; 71045; 80053; 81001; 82550; 82553; 82948; 83735; 83880; 84484; 84702; 85025; 85610; 85730; 87086; 87186; 99284; J1885; J7030

== ENCOUNTER 2022-02-02 09:00 | Outpatient (RCR) | payer BC ==
[~2022-02-02 09:00] MED LIST changes: +BASAGLAR K100 UNIT/1; +LAMOTRIGINE100 MG PO; +METHOCARBAMOL750 MG PO; +NEURONTIN300 MG PO; +NOVOLOG MI100 UNIT/1 SC; +ULTRAM50 MG PO
== END 2022-02-18 ==
LOC: PT 09:00
PROVIDERS: ATTEND Neurological Surgery
DX: M54.50 Low back pain, unspecified (principal); M53.86 Other specified dorsopathies, lumbar region; M62.81 Muscle weakness (generalized)

== ENCOUNTER 2022-04-14 09:00 | Outpatient (RCR) | payer BC | END 2022-04-21 | LOC: PT 09:00 | PROVIDERS: ATTEND Neurological Surgery | DX: M54.50 Low back pain, unspecified (principal); M62.81 Muscle weakness (generalized); M53.86 Other specified dorsopathies, lumbar region ==

== ENCOUNTER → 2024-07-26 | Outpatient (REF) | payer BC ==
[~2024-07-26] MED LIST changes: +AMPHETAMINE S12.5 MG PO; +AMPHETAMINE SUL10 MG PO; +DEPAKOTE ER250 MG PO; +DICYCLOMINE HCL20 MG PO; +FAMOTIDINE20 MG PO; +GLIPIZIDE-METF1 EAC2 PO; +JARDIANCE25 MG PO; +KETOROLAC PO; +LIPITOR10 MG PO; +MIRTAZAPINE15 MG PO; +MULTI-VITAMIN1 EACH PO; +ONDANSETRON ODT8 MG PO
== END ==
LOC: DX 09:53
PROVIDERS: ATTEND Nurse Practitioner
DX: R13.10 Dysphagia, unspecified (principal)
CPT/HCPCS: 74230